=== PATIENT | female | born 1980 | race Caucasian/White ===

== ENCOUNTER 2024-02-18 05:48 | Emergency (ER) | payer OTHER, SELFPAY ==
--- NOTE | ~2024-02-18 | CT_ITS ---
EXAMINATION: CT CERVICAL SPINE WITHOUT CONTRAST CLINICAL INFORMATION: Pain COMPARISON: None available. TECHNIQUE: Contiguous axial imaging was performed from through the cervical spine. Coronal and sagittal reformats were obtained at the acquisition workstation. This CT examination was performed using dose optimization techniques as appropriate, variously including the following: *Automated exposure control *Adjustment of mA and/or kV according to patient size (this includes techniques or standardized protocols for targeted exams where dose is matched to indication/reason for exam; i.e. extremities or head) *Use of iterative reconstruction technique DLP: 392 mGy-cm FINDINGS: The atlantooccipital and atlantoaxial articulations remain well aligned. Straightening of the normal cervical lordosis. Otherwise, there is anatomic alignment of the vertebral bodies and posterior elements. No evidence of acute fracture or subluxation. The vertebral body heights and disc spaces are maintained. There is no prevertebral soft tissue swelling. The thyroid gland and remaining cervical soft tissues are within normal limits. The lung apices demonstrate no abnormalities. CT/CT cervical spine wo IV con IMPRESSION: Straightening of cervical lordosis likely related to muscle spasm Fleischner guidelines were followed.
[2024-02-18 05:57] VITALS: BP 151/71; PULSE 71; RESP 18; TEMP 36.5; O2SAT 99; BMI 34.7
[2024-02-18 07:02] VITALS: BP 130/89; PULSE 66; RESP 16; TEMP 36.1; O2SAT 99
--- NOTE | 2024-02-18 07:03 | PC.NURSE ---
Pt is alert/oriented. Reports neck pain down into shoulders, worse on left side with tightness and swelling per pt. ?area sl bigger to site than left. NAD. Speaking full sentences. VSS. Awaits ED provider assessment
--- NOTE | 2024-02-18 07:07 | ED.NECK ---
HPI - Neck Pain/Injury General Chief Complaint: Neck Pain/Injury Stated Complaint: slipped and hit head Time Seen by Provider: 02/18/24 07:01 Source: patient Mode of arrival: ambulatory Limitations: no limitations History of Present Illness ED Provider: ZOILA HPI Narrative: 43 yo female at work 4 days ago head hit straight (no LOC no thinners) on into a trailer then felt pain into neck since then neck is tight and feels cracking at times. 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 She has no UE weakness or tingling. MD complaint: neck pain and neck injury Onset (ago): day(s) (4) Place: work Radiation: right lateral, left lateral and head Severity: moderate Quality: spasming and throbbing Duration: intermittent Relieving factors: immobilization Exacerbating factors: movement of neck Context: direct blow Associated symptoms: headache Treatments prior to arrival: acetaminophen and ibuprofen Related Data Previous Rx's ?Medication ?Instructions ?Recorded cyclobenzaprine 10 mg tablet 10 mg PO TID PRN muscle spasm #20 02/18/24 tabs ibuprofen 600 mg tablet 600 mg PO Q6H PRN pain #30 tabs 02/18/24 lidocaine 5 % topical patch 1 patch topical DAILY #30 ea 02/18/24 Allergies Allergy/AdvReac Type Severity Reaction Status Date / Time No Known Allergies Allergy Verified 02/18/24 06:01 [No Known Allergies*] Review of Systems Review of Systems: Constitutional : No Fever, No Chills, No Fatigue ENT/Mouth : No sore throat, No Rhinorrhea Eyes: No Eye Pain, No Swelling, No Redness Cardiovascular : No Chest Pain, No SOB, No Dyspnea on Exertion Respiratory : No Cough, No Sputum Gastrointestinal : No Nausea, No Vomiting, No Diarrhea, No abdominal Pain Genitourinary : No Dysuria, No Urinary Frequency, No Hematuria, Musculoskeletal : No joint pain, No Myalgias, No Joint Swelling, pos neck pain Skin : No Skin Lesions, No rash Neuro : No Weakness, No Numbness, No Dizziness, positive Headache Psych : No Anxiety/Panic, No Depression All other systems reviewed and are negative PMFSH Past Medical History Attestation statement: The following information was validated with the patient. Source: old records reviewed Medical History (Updated 05/29/24 @ 08:08 by Evi Wilcox DO) No pertinent past medical history Social History Social History (Updated 02/18/24 @ 08:05 by Evi Wilcox DO) Patient Tobacco Use Status: Never used Tobacco Advance Directives: No Advance Directives Information Provided: No Do you have a plan to hurt others: No Plan Physical Exam Vital Signs: Vital Signs: Last Vital Signs Temp 97.0 F 02/18/24 08:22 Pulse 66 02/18/24 08:22 Resp 16 02/18/24 08:22 BP 130/89 02/18/24 08:22 Pulse Ox 99 02/18/24 08:22 O2 Del Method Room Air 02/18/24 08:22 BMI result Body Mass Index 34.7 Appearance: Alert. Oriented X3. No acute distress. Eyes: Pupils equal, round and reactive to light. ENT: Pharynx normal. Neck: tightness and spasm to both trapezius muscle CVS: Normal heart rate and rhythm. Pulses normal. Respiratory: No respiratory distress. Breath sounds normal. Abdomen: Soft and nontender. Skin: Skin warm and dry. Normal skin color. Normal skin turgor. Extremities: No lower extremity edema. No calf ttp Neuro: Oriented X 3. No motor deficit. No sensory deficit. Medical Decision Making Medical Decision Making MDM Narrative: 43 yo female with no sig PMH here with c/o neck pain following direct blow to head no LOC or thinners she is NV intact in UE at this time will need cervical spine to rule out fracture if negative will start on muscle relaxers and pain patches refer to PCP for PT and put out of work on Friday/Friday. Differential Diagnosis Differential Diagnoses: The differential diagnosis associated with the presentation includes sprain, strain, spasm Independent Interpretation I performed an independent interpretation of an: CT Scan (no fracture) Radiology Impression Discussion of test interpretation with radiology: I have reviewed the radiologist's reading. Prescription Management I considered prescription management with: Other Discharge Plan Discharge Clinical Impression: Muscle spasms of neck Whiplash injury to neck Qualifiers: Encounter type: initial encounter Qualified Code(s): S13.4XXA - Sprain of ligaments of cervical spine, initial encounter Patient Disposition: Home, Self-Care Instructions: Cervical Sprain (ED), Muscle Spasm (ED) Additional Instructions: no fracture seen on cervical spine imaging today while in ED return for worsening pain, weakness or numbness in arms follow up with your doctor for physical therapy - alternate tylenol and motrin for pain Prescriptions: New cyclobenzaprine 10 mg tablet 10 mg PO TID PRN (Reason: muscle spasm) Qty: 20 0RF lidocaine 5 % adhesive patch,medicated 1 patch topical DAILY Qty: 30 0RF Rx Instructions: leave on most painful area for up to 12 hrs ibuprofen 600 mg tablet 600 mg PO Q6H PRN (Reason: pain) Qty: 30 0RF Stand Alone Forms: Work/School Release Interventions: ED Discharge Assessment Last Done: 02/18/24 08:22 Discharge Date/Time: 02/18/24 08:22 Print Language: [place]
[2024-02-18 08:22] VITALS: BP 130/89; PULSE 66; RESP 16; TEMP 36.1; O2SAT 99
== END 2024-02-18 08:22 | disposition home or self-care (01) ==
PROVIDERS: Emergency Provider Emergency Medicine; PCP Internal Medicine
DX: M62.838 Other muscle spasm (principal); S13.4XXA Sprain of ligaments of cervical spine, initial encounter; W22.8XXA Striking against or struck by other objects, initial encounter; Y93.89 Activity, other specified; Y92.812 Truck as the place of occurrence of the external cause; Y99.0 Civilian activity done for income or pay
CPT/HCPCS: 72125; 99284